=== PATIENT | male | born 1985 | race Caucasian/White ===

== ENCOUNTER 2023-12-11 08:08 | Outpatient (CLI) | payer MEDICAID, OTHER | END 2023-12-11 23:59 | disposition home or self-care (01) | LOC: RAD 08:08 | PROVIDERS: ATTEND Nurse Practitioner Family | DX: I08.8 Other rheumatic multiple valve diseases (principal); K76.89 Other specified diseases of liver; K82.4 Cholesterolosis of gallbladder; G45.9 Transient cerebral ischemic attack, unspecified; R42 Dizziness and giddiness; R07.89 Other chest pain; R10.84 Generalized abdominal pain | CPT/HCPCS: 76700; 93306; 93880 ==